=== PATIENT | male | born 1935 | race Caucasian/White ===

== ENCOUNTER 2017-04-08 10:34 | Observation (INO) | payer MEDICARE, OTHER ==
[2017-04-08] VITALS (9 sets, daily range): BP systolic 106–189; BP diastolic 55–90; PULSE 58–77; RESP 16–20; TEMP 97.3–97.4; O2SAT 94–98
[~2017-04-08 10:34] MED LIST: ASPI325T PO; HYDR-3533 PO; LEVO.125 PO; MULT400T OR; ROBA500T PO; TOPR50TA PO; VYTO10TA39 PO
[2017-04-08] MEDS ORDERED: SODIUM CHLOR 0.9% 1000 ML INJ 1,000 ML IV ONE (10:38)
[2017-04-08 10:53] LABS: BASOPHIL # 0.1 TH/MM3 (0-0.2); BASOPHIL % 1.5 % (0.0-2.0); EOSINOPHIL # 0.2 TH/MM3 (0-0.4); EOSINOPHIL % 3.4 % (0.0-4.0); HEMATOCRIT 42.5 % (39.0-51.0); HEMO FLAGS DIFF FINAL; LYMPH % 26.3 % (9.0-44.0); LYMPHOCYTE # 1.8 TH/MM3 (1.0-4.8); MEAN CELL VOLUME 93.7 FL (80.0-100.0); MEAN CORPUSCULAR HEMOGLOBIN 30.8 PG (27.0-34.0); MEAN CORPUSCULAR HGB CONC 32.9 % (32.0-36.0); MONO % 10.5 % (0.0-8.0); NEUT % 58.3 % (16.0-70.0); PLATELET COUNT 156 TH/MM3 (150-450); RED BLOOD COUNT 4.54 MIL/MM3 (4.50-5.90); RED CELL DISTRIBUTION WIDTH 14.4 % (11.6-17.2); WHITE BLOOD COUNT 6.9 TH/MM3 (4.0-11.0)
[2017-04-08 10:54] LABS: I-STAT POTASSIUM 4.7 MMOL/L (3.5-4.9); I-STAT SODIUM 140 MMOL/L (138-146)
--- NOTE | 2017-04-08 10:57 | RADRPT ---
EXAM DATE/TIME: 04/08/2017 10:43 [facility] COMPARISON: No previous studies available for comparison. INDICATIONS : Aphasia, confusion RADIATION DOSE: 56.35 CTDIvol (mGy) This report was called while all scanner. MEDICAL HISTORY : Cardiovascular disease. SURGICAL HISTORY : CABG ENCOUNTER: Initial ACUITY: 1 day PAIN SCALE: 0/10 LOCATION: cranial TECHNIQUE: Multiple contiguous axial images were obtained of the head. Using automated exposure control and adj ustment of the mA and/or kV according to patient size, radiation dose was kept as low as reasonably a chievable to obtain optimal diagnostic quality images. FINDINGS: CEREBRUM: The ventricles are normal for age. No evidence of midline shift, mass lesion, hemorrhage or acute in farction. No extra-axial fluid collections are seen. POSTERIOR FOSSA: The cerebellum and brainstem are intact. The 4th ventricle is midline. The cerebellopontine angle i s unremarkable. EXTRACRANIAL: The visualized portion of the orbits is intact. SKULL: The calvaria is intact. No evidence of skull fracture. CONCLUSION: Negative for acute process. MRI is pending. Domingo Magana MD FACR on April 08, 2017 at 10:53 Board Certified Radiologist. This report was verified electronically.
[2017-04-08 11:05] LABS: APTT (PATIENT) 24.9 SEC (24.3-30.1); INTERNATIONAL NORMALIZED RATIO 0.9 RATIO; PROTHROMBIN TIME - PATIENT 10.4 SEC (9.8-11.6)
[2017-04-08 11:14] LABS: CREATINE KINASE 138 U/L (39-308)
--- NOTE | 2017-04-08 11:38 | RADRPT ---
EXAM DATE/TIME: 04/08/2017 11:04 [facility] COMPARISON: No previous studies available for comparison. INDICATIONS : Stroke. MEDICAL HISTORY : None. SURGICAL HISTORY : CABG Left knee. ENCOUNTER: Initial ACUITY: 1 day PAIN SCORE: 0/10 LOCATION: Head TECHNIQUE: Multiplanar, multisequence MRI of the brain was performed without contrast. FINDINGS: Diffusion images reveal no ischemic changes. There are scattered areas of high signal intensity in t he periventricular white matter is a nonspecific fashion. Lacunar type infarcts are seen in the left cerebellar hemisphere and in the basal ganglia bilaterally. There are no extra-axial fluid collecti ons appreciated. Midline structures are intact. There is no parenchymal hemorrhage. CONCLUSION: 1. Periventricular ischemic changes, negative for acute infarction or parenchymal hemorrhage. 2. Ischemic changes do extend into the posterior fossa. Domingo Magana MD FACR on April 08, 2017 at 11:33 Board Certified Radiologist. This report was verified electronically.
--- NOTE | 2017-04-08 11:44 | RADRPT ---
EXAM DATE/TIME: 04/08/2017 11:04 [facility] COMPARISON: MRI BRAIN W/O CONTRAST, April 08, 2017, 11:04. INDICATIONS : Stroke. MEDICAL HISTORY : None. SURGICAL HISTORY : CABG knee. ENCOUNTER: Initial ACUITY: 1 day PAIN SCORE: 0/10 LOCATION: head Please note a normal MRA of the brain does not entirely exclude the possibility of a small aneurysm, nor the possibility of distal intracranial vessel disease. TECHNIQUE: 3D time of flight MRA was performed. Source images, multiplanar STS MIP, and 3D volume MIP reconstru ctions were reviewed. FINDINGS: There is excellent visualization of the major intracranial arteries out to the second-order branch ve ssels. There is no evidence for aneurysm, vessel truncation or stenosis, and no evidence for vascula r malformation. CONCLUSION: 1. Negative examination. Johnnie Magana MD on April 08, 2017 at 11:40 Board Certified Radiologist. This report was verified electronically.
[2017-04-08] MEDS ORDERED: SODIUM CHLORID 0.9% 500 ML INJ 500 ML IV ONE (11:45)
[2017-04-08] MEDS ORDERED: ASPIRIN 81 MG CHEW TAB CHEW ONE (11:45)
--- NOTE | 2017-04-08 11:47 | RADRPT ---
EXAM DATE/TIME: 04/08/2017 10:53 [facility] COMPARISON: [facility] ([facility]), September 30, 2016, 0:00. INDICATIONS : Stroke alert. MEDICAL HISTORY : Unobtainable. SURGICAL HISTORY : Open heart surgery. ENCOUNTER: Initial ACUITY: 1 day PAIN SCORE: Non-responsive. LOCATION: chest FINDINGS: The patient is post median sternotomy. The heart is normal size. The lungs are clear. The visualized bony structures are grossly intact. CONCLUSION: 1. Post surgical changes. No acute abnormality. Johnnie Magana MD on April 08, 2017 at 11:45 Board Certified Radiologist. This report was verified electronically.
[2017-04-08] MEDS ORDERED: RAPA4CAP PO (11:57)
[2017-04-08] MEDS ORDERED: SIMV40TA PO (11:57)
[2017-04-08] MEDS ORDERED: TOPR50TA PO (11:57)
[2017-04-08] MEDS ORDERED: LEVO125T4 PO (11:57)
--- NOTE | 2017-04-08 12:34 | PD ---
HPI Chief Complaint: Stroke Alert Time Seen by Provider: 10:37 Travel History International Travel<30 days: No Contact w/Intl Traveler<30days: No Traveled to known affect area: No History of Present Illness HPI Patient is a 81-year-old male who presents emergency Department as a stroke alert. The patient was apparently playing golf today when he became confused, he started driving his golf cart in the wrong direction friends caught up with him and called 911. Symptoms onset approximately 30 minutes prior to arrival. Per EMS the patient was having some dysarthria and was having trouble identifying common objects such as sunglasses. On arrival the patient is nearly resolved. He has a history of CABG and left bundle branch block according to EMS. Not on any blood thinners. PFSH Past Medical History Hx Anticoagulant Therapy: Yes (ASA) Heart Rhythm Problems: Yes (V TACH) Cancer: No Cardiovascular Problems: Yes High Cholesterol: Yes Chest Pain: Yes Congestive Heart Failure: No Coronary Artery Disease: Yes Endocrine: No Genitourinary: No Hypertension: Yes Immune Disorder: No Musculoskeletal: No Neurologic: No Psychiatric: No Reproductive: No Respiratory: No Past Surgical History Abdominal Surgery: No Appendectomy: Yes Cardiac Surgery: Yes (2 CABG) Coronary Artery Bypass Graft: Yes (x 2, angio x 3) Ear Surgery: No Endocrine Surgery: No Eye Surgery: No Genitourinary Surgery: No Gynecologic Surgery: No Oral Surgery: No Thoracic Surgery: No Other Surgery: Yes Social History Alcohol Use: Yes (occ) Tobacco Use: No Substance Use: No Allergies-Medications (Allergen,Severity, Reaction): Coded Allergies: No Known Allergies (Verified , 09/29/16) Reported Meds & Prescriptions Reported Meds & Active Scripts Active Robaxin (Methocarbamol) 500 Mg Tab 500 Mg PO QID Lortab (Hydrocodone-Acetaminophen) 5-325 Mg Tab 1 Tab PO Q6H PRN Reported Simvastatin 40 Mg Tab 40 Mg PO HS Toprol XL (Metoprolol Succinate) 50 Mg Tab 50 Mg PO DAILY Rapaflo (Silodosin) 4 Mg Cap 4 Mg PO DAILY Levothyroxine (Levothyroxine Sodium) 125 Mcg Tab 125 Mcg PO DAILY Multaq (Dronedarone) 400 Mg Tab 400 Mg OR BID Vytorin 10/80 (Ezetimibe/Simvastatin) Tab 1 Tab PO DAILY Synthroid (Levothyroxine Sodium) 125 Mcg Tab 125 Mcg PO DAILY Toprol Xl (Metoprolol Succinate) 50 Mg Tabcr 50 Mg PO DAILY Aspirin 325 mg (Aspirin) 325 Mg Tab 325 Mg PO DAILY Review of Systems Except as stated in HPI: all other systems reviewed are Neg Physical Exam Narrative GENERAL: Well-developed well-nourished no apparent distress SKIN: Focused skin assessment warm/dry. HEAD: Atraumatic. Normocephalic. EYES: Pupils equal and round. No scleral icterus. No injection or drainage. ENT: No nasal bleeding or discharge. Mucous membranes pink and moist. NECK: Trachea midline. No JVD. CARDIOVASCULAR: Regular rate and rhythm. No murmur appreciated. RESPIRATORY: No accessory muscle use. Clear to auscultation. Breath sounds equal bilaterally. GASTROINTESTINAL: Abdomen soft, non-tender, nondistended. Hepatic and splenic margins not palpable. MUSCULOSKELETAL: No obvious deformities. No clubbing. No cyanosis. No edema. NEUROLOGICAL: Awake and alert and oriented, total NIH stroke scale of 0-1 (for some mild inattention vs distracted by multiple providers). Cranial nerves II through XII are grossly intact nonfocal, 5 out of 5 strength in all 4 extremities, no pronator drift, no drift lower extremities. Sensation is intact. PSYCHIATRIC: Appropriate mood and affect; insight and judgment normal. Data Data Last Documented VS Vital Signs Date Time Temp Pulse Resp B/P Pulse Ox O2 Delivery O2 Flow Rate FiO2 04/08/17 12:00 58 20 156/81 97 04/08/17 11:10 Room Air 04/08/17 10:37 21 Orders Activity Bed Rest (04/08/17 ) Electrocardiogram (04/08/17 ) I-Stat Creatinine (04/08/17 10:38) I-Stat Profile (04/08/17 10:38) Prothrombin Time / Inr (Pt) (04/08/17 10:38) Act Partial Throm Time (Ptt) (04/08/17 10:38) Complete Blood Count With Diff (04/08/17 10:38) Fibrinogen (04/08/17 10:38) Creatine Kinase (Cpk) (04/08/17 10:38) Troponin I (04/08/17 10:38) Ua Includes Microscopic (04/08/17 10:38) Drug Screen, Random Urine (04/08/17 10:38) Ct Brain W/O Iv Contrast(Rout) (04/08/17 ) Chest, Single Ap (04/08/17 ) Consult Neurology (04/08/17 ) Blood Glucose (04/08/17 10:38) Ecg Monitoring (04/08/17 10:38) Neuro Checks Q2HX12,Q4H (04/08/17 10:38) Nursing Bedside Swallow Assess .ONCE (04/08/17 10:38) Iv Access Insert/Monitor (04/08/17 10:38) NPO (04/08/17 10:38) Oximetry (04/08/17 10:38) Oxygen Administration (04/08/17 10:38) Sodium Chlor 0.9% 1000 Ml Inj (Ns 1000 M (04/08/17 10:38) Resp Oxygen [place]uma C Titrat 1-4 L (04/08/17 10:38) Cath For Specimen (04/08/17 10:38) Mra Brain W/O Contrast (Cow) (04/08/17 ) Mri Brain W/O Contrast (04/08/17 ) (Hub Use Only)Inp Phy Cons/Ref (04/08/17 ) Sodium Chlorid 0.9% 500 Ml Inj (Ns 500 M (04/08/17 11:45) Aspirin Chew (Aspirin Chew) (04/08/17 11:45) Admit Order (Ed Use Only) (04/08/17 ) Labs Laboratory Tests Test 04/08/17 04/08/17 10:35 11:50 White Blood Count 6.9 TH/MM3 Red Blood Count 4.54 MIL/MM3 Hemoglobin 14.0 GM/DL Bedside Hemoglobin 13.9 G/DL Hematocrit 42.5 % Bedside Hematocrit 41.0 % Mean Corpuscular Volume 93.7 FL Mean Corpuscular Hemoglobin 30.8 PG Mean Corpuscular Hemoglobin 32.9 % Concent Red Cell Distribution Width 14.4 % Platelet Count 156 TH/MM3 Mean Platelet Volume 8.1 FL Neutrophils (%) (Auto) 58.3 % Lymphocytes (%) (Auto) 26.3 % Monocytes (%) (Auto) 10.5 % Eosinophils (%) (Auto) 3.4 % Basophils (%) (Auto) 1.5 % Neutrophils # (Auto) 4.0 TH/MM3 Lymphocytes # (Auto) 1.8 TH/MM3 Monocytes # (Auto) 0.7 TH/MM3 Eosinophils # (Auto) 0.2 TH/MM3 Basophils # (Auto) 0.1 TH/MM3 CBC Comment DIFF FINAL Differential Comment Prothrombin Time 10.4 SEC Prothromb Time International 0.9 RATIO Ratio Activated Partial 24.9 SEC Thromboplast Time Fibrinogen 382 mg/dL Bedside Sodium 140 MMOL/L Bedside Potassium 4.7 MMOL/L Bedside Chloride 104 MMOL/L Bedside Blood Urea Nitrogen 19 MG/DL Bedside Creatinine 1.1 MG/DL Bedside Glucose 117 MG/DL Total Creatine Kinase 138 U/L Troponin I LESS THAN 0.02 NG/ML Triglycerides Level 147 MG/DL Cholesterol Level 193 MG/DL LDL Cholesterol 119 MG/DL HDL Cholesterol 44.5 MG/DL Cholesterol/HDL Ratio 4.33 RATIO Urine Color LIGHT-YELLOW Urine Turbidity CLEAR Urine pH 6.5 Urine Specific [place] 1.008 Urine Protein NEG mg/dL Urine Glucose (UA) NEG mg/dL Urine Ketones NEG mg/dL Urine Occult Blood NEG Urine Nitrite NEG Urine Bilirubin NEG Urine Urobilinogen LESS THAN 2.0 MG/DL Urine Leukocyte Esterase NEG Urine RBC LESS THAN 1 /hpf Urine WBC LESS THAN 1 /hpf Urine Opiates Screen NEG Urine Barbiturates Screen NEG Urine Amphetamines Screen NEG Urine Benzodiazepines Screen NEG Urine Cocaine Screen NEG Urine Cannabinoids Screen NEG MDM Medical Screen Exam Complete: Yes Emergency Medical Condition: Yes EKG Prior to Arrival: No Differential Diagnosis TIA, acute stroke, intracranial hemorrhage. Narrative Course Patient was roomed emergency department, stroke alert was activated however the patient will not be a TPA candidate as he is resolved and has a low NIH stroke scale (0-1). Patient was discussed with Dr. Bolton who agrees for MRI workup and need for admission for observation. The patient was discussed with hospitalist on-call who also is agreeable. Critical Care Narrative Aggregate critical care time was 35 minutes. Time to perform other separately billable procedures was not included in the critical care time. My time did not include minutes spent treating any other patients simultaneously or on activities that did not directly contribute to the patient's treatment. The services I provided to this patient were to treat and/or prevent clinically significant deterioration that could result in: , disability, organ failure, brain damage. I provided critical care services requiring my management, as noted below: Chart data review, documentation time, medication orders and management, vital sign assessments/reviewing monitor data, ordering and reviewing lab tests, ordering and interpreting/reviewing x-rays and diagnostic studies, care of the patient and discussion of the patient with the admitting physicians. Stroke Alert NIHSS NIH Stroke Scale Result: 0 NIHSS Time Completed: 10:30 Thrombolytic Contraindications Contraindications Comment: NIH 0, resolved. Procedures Interpretation(s) EKG shows sinus bradycardia left bundle branch block. No Scarbossa's criteria. This is an abnormal EKG. Diagnosis Diagnosis: Primary Impression: TIA (transient ischemic attack) Qualified Code: G45.9 - Transient cerebral ischemia, unspecified type Admitting Physician Requests: Observation Condition: Stable Vikram Petit MD Apr 08, 2017 12:34
[2017-04-08 12:41] LABS: AMPHETAMINE, URINE NEG (NEG); BARBITURATES, URINE NEG (NEG); COCAINE, URINE NEG (NEG)
[2017-04-08 12:42] LABS: BLOOD, URINE NEG (NEG); GLUCOSE,URINE NEG (NEG); KETONE, URINE NEG (NEG); NITRITE,URINE NEG (NEG); PH, URINE 6.5 (5.0-8.5); URINE COLOR LIGHT-YELLOW (YELLW/STRAW)
[2017-04-08] MEDS ORDERED: ACETAMINOPHEN/HYDROcodone 325 MG/5 MG TAB PO PRN (15:00)
[2017-04-08 17:09] LABS: HDL CHOLESTEROL 44.5 MG/DL (40.0-60.0)
--- NOTE | 2017-04-08 17:32 | HHI.HP ---
HPI Service [facility] Primary Care Physician Florencio Pagan M.D. Admission Diagnosis TIA Diagnoses: Chief Complaint: Stroke symptoms Travel History International Travel<30 Days: No Contact w/Intl Traveler <30 Da: No Traveled to Known Affected Are: No History of Present Illness This is a 81-year-old white male with significant past history hypertension, hyperlipidemia, borderline diabetes, coronary artery disease and previous CABG, V. tach . Patient presented to the emergency room as a stroke alert. According to the patient, this morning he was playing golf when he suddenly fell "strange", indicates that he could not use his hands, they were "useless". [place] confused, he couldn't recognize the name of his street and could not answer questions appropriately. Denies any paresthesias, no changes in sensation, no headache. No difficulty with mobility. Indicates that his friends took him home and they called EMS and he was brought here for further evaluation. He denies any prior history of stroke. He has prior history of coronary artery disease and V. tach. His national dedicated truck driver is Dr. Hernandez. He does take a baby aspirin. In the emergency room, patient was evaluated. CT of the head was negative. He was given aspirin. Patient was initially elevated 180s over 90s. Laboratory workup was essentially unremarkable. At this time, his symptoms have been resolved. He denies any chest pain, no shortness of breath, no palpitations. No recent fever, no chills. Indicates that prior to this hospitalization he had been doing well at home and had been in good health. Patient is admitted for further evaluation and treatment. Review of Systems Psychiatric: COMPLAINS OF: Confusion Past Family Social History Past Medical History Include hypothyroidism, coronary artery disease, hypertension, hyperlipidemia, V. tach Borderline diabetes, currently diet controlled Past Surgical History Significant for coronary artery bypass surgery times two, one at age 42 and another at age 62. Appendectomy, multiple cardiac catheterizations. Reported Medications Reported Meds & Active Scripts Active Robaxin (Methocarbamol) 500 Mg Tab 500 Mg PO QID Lortab (Hydrocodone-Acetaminophen) 5-325 Mg Tab 1 Tab PO Q6H PRN Reported Simvastatin 40 Mg Tab 40 Mg PO HS Toprol XL (Metoprolol Succinate) 50 Mg Tab 50 Mg PO DAILY Rapaflo (Silodosin) 4 Mg Cap 4 Mg PO DAILY Levothyroxine (Levothyroxine Sodium) 125 Mcg Tab 125 Mcg PO DAILY Multaq (Dronedarone) 400 Mg Tab 400 Mg OR BID Vytorin 10/80 (Ezetimibe/Simvastatin) Tab 1 Tab PO DAILY Synthroid (Levothyroxine Sodium) 125 Mcg Tab 125 Mcg PO DAILY Toprol Xl (Metoprolol Succinate) 50 Mg Tabcr 50 Mg PO DAILY Aspirin 325 mg (Aspirin) 325 Mg Tab 325 Mg PO DAILY Allergies: Coded Allergies: No Known Allergies (Verified , 09/29/16) Active Ordered Medications Inpatient Medications Acetaminophen/ Hydrocodone Bitart ([place] 5-325 Mg) 1 tab Q6H PRN PO PAIN 1-10 ; Start 04/08/17 at 15:00 Aspirin (Aspirin Chew) 324 mg ONCE ONCE CHEW Last administered on 04/08/17 11 :45; Start 04/08/17 at 11:45; Stop 04/08/17 at 11:50; Status DC Aspirin (Aspirin) 325 mg DAILY PO ; Start 04/09/17 at 09:00 Dronedarone (Multaq) 400 mg BID PO ; Start 04/08/17 at 21:00 Levothyroxine Sodium (Synthroid) 125 mcg DAILY@06 PO ; Start 04/09/17 at 06:00 Metoprolol Succinate (Toprol Xl) 50 mg DAILY PO ; Start 04/09/17 at 09:00 Pravastatin Sodium (Pravachol) 80 mg HS PO CM; Start 04/08/17 at 21:00 Sodium Chloride (NS 500 ml Inj) 500 ml @ 500 mls/hr BOLUS ONCE IV Last administered on 04/08/17 11:45; Start 04/08/17 at 11:45; Stop 04/08/17 at 12:44 ; Status DC Family History Significant for heart disease. Social History The patient states that he quit smoking approximately 40 years ago. He does drink alcohol approximately two glasses of wine daily. He denies any illicit drugs. Very active, plays golf 4x a week. Physical Exam Vital Signs Vital Signs Date Time Temp Pulse Resp B/P Pulse Ox O2 Delivery O2 Flow Rate FiO2 04/08/17 16:22 97.3 60 16 134/62 95 04/08/17 15:24 59 16 141/60 98 04/08/17 12:00 58 20 156/81 97 04/08/17 11:10 16 94 Room Air 04/08/17 10:37 96 21 04/08/17 10:37 96 21 04/08/17 10:36 77 18 189/90 94 Physical Exam GENERAL: This is a well-nourished, well-developed patient, in no apparent distress. SKIN: No rashes, ecchymoses or lesions. Cool and dry. HEAD: Atraumatic. Normocephalic. No temporal or scalp tenderness. EYES: Pupils equal round and reactive. Extraocular motions intact. No scleral icterus. No injection or drainage. ENT: Nose without bleeding, purulent drainage or septal hematoma. Throat without erythema, tonsillar hypertrophy or exudate. Uvula midline. Airway patent. NECK: Trachea midline. No JVD or lymphadenopathy. Supple, nontender, no meningeal signs. CARDIOVASCULAR: Regular rate and rhythm without murmurs, gallops, or rubs. RESPIRATORY: Clear to auscultation. Breath sounds equal bilaterally. No wheezes , rales, or rhonchi. GASTROINTESTINAL: Abdomen soft, non-tender, nondistended. No hepato-splenomegaly , or palpable masses. No guarding. MUSCULOSKELETAL: Extremities without clubbing, cyanosis, or edema. No joint tenderness, effusion, or edema noted. No calf tenderness. Negative Homans sign bilaterally. NEUROLOGICAL: Awake and alert. Cranial nerves II through XII intact. Motor and sensory grossly within normal limits. Five out of 5 muscle strength in all muscle groups. Normal speech. Laboratory Laboratory Tests Test 04/08/17 04/08/17 10:35 11:50 White Blood Count 6.9 Red Blood Count 4.54 Hemoglobin 14.0 Bedside Hemoglobin 13.9 Hematocrit 42.5 Bedside Hematocrit 41.0 Mean Corpuscular Volume 93.7 Mean Corpuscular Hemoglobin 30.8 Mean Corpuscular Hemoglobin 32.9 Concent Red Cell Distribution Width 14.4 Platelet Count 156 Mean Platelet Volume 8.1 Neutrophils (%) (Auto) 58.3 Lymphocytes (%) (Auto) 26.3 Monocytes (%) (Auto) 10.5 Eosinophils (%) (Auto) 3.4 Basophils (%) (Auto) 1.5 Neutrophils # (Auto) 4.0 Lymphocytes # (Auto) 1.8 Monocytes # (Auto) 0.7 Eosinophils # (Auto) 0.2 Basophils # (Auto) 0.1 CBC Comment DIFF FINAL Differential Comment Prothrombin Time 10.4 Prothromb Time International 0.9 Ratio Activated Partial 24.9 Thromboplast Time Fibrinogen 382 Bedside Sodium 140 Bedside Potassium 4.7 Bedside Chloride 104 Bedside Blood Urea Nitrogen 19 Bedside Creatinine 1.1 Bedside Glucose 117 Total Creatine Kinase 138 Troponin I LESS THAN 0.02 Triglycerides Level 147 Cholesterol Level 193 LDL Cholesterol 119 HDL Cholesterol 44.5 Cholesterol/HDL Ratio 4.33 Urine Color LIGHT-YELLOW Urine Turbidity CLEAR Urine pH 6.5 Urine Specific [place] 1.008 Urine Protein NEG Urine Glucose (UA) NEG Urine Ketones NEG Urine Occult Blood NEG Urine Nitrite NEG Urine Bilirubin NEG Urine Urobilinogen LESS THAN 2.0 Urine Leukocyte Esterase NEG Urine RBC LESS THAN 1 Urine WBC LESS THAN 1 Urine Opiates Screen NEG Urine Barbiturates Screen NEG Urine Amphetamines Screen NEG Urine Benzodiazepines Screen NEG Urine Cocaine Screen NEG Urine Cannabinoids Screen NEG Result Diagram: 04/08/17 1035 Imaging Last Impressions Head Magnetic Resonance Angiography 04/08/17 0000 Signed Impressions: Service Date/Time: Saturday, April 08, 2017 11:04 - CONCLUSION: 1. Negative examination. Johnnie Magana MD Head CT 04/08/17 0000 Signed Impressions: Service Date/Time: Saturday, April 08, 2017 10:43 - CONCLUSION: Negative for acute process. MRI is pending. Domingo Magana MD FACR Chest X-Ray 04/08/17 0000 Signed Impressions: Service Date/Time: Saturday, April 08, 2017 10:53 - CONCLUSION: 1. Post surgical changes. No acute abnormality. Johnnie Magana MD Brain MRI 04/08/17 0000 Signed Impressions: Service Date/Time: Saturday, April 08, 2017 11:04 - CONCLUSION: 1. Periventricular ischemic changes, negative for acute infarction or parenchymal hemorrhage. 2. Ischemic changes do extend into the posterior fossa. Domingo Magana MD FACR Assessment and Plan Problem List: (1) TIA (transient ischemic attack) (2) CAD (coronary artery disease) (3) Hyperlipidemia (4) HTN (hypertension) (5) Alcohol abuse, daily use (6) Hx of ventricular tachycardia Assessment and Plan Admit to Dr. Sher 81-year-old male assented to the emergency room with difficulty using hands while playing golf, could not speak felt confused. TIA, symptoms now resolved. Continue with neuro checks Normal saline at 75 an hour Neurology has been consulted for evaluation 2-D echo, carotid ultrasound have been ordered Continuous cardiac telemetry Continue with aspirin for now Lipid profile and hemoglobin A1c have been ordered -PT evaluation Coronary artery disease, history of CABG 2 first time at age 42 and then a redo and his 60s History of V. tach on Multaq -Continue amiodarone and metoprolol Continuous cardiac telemetry Cardiology has been consulted Hypertension, initially elevated now stable Continue with home medications Hyperlipidemia Lipid profile pending Continue with statins Daily alcohol use Patient has been counseled about decreasing alcohol intake Medications reviewed, initiated as indicated SCDs for DVT prophylaxis Plan of care has been discussed with the patient, attending and registered nurse. Further management of the patient will be dependent on the hospital course This patient was seen by myself and Dr. Sher, this H&P is written on his behalf Problem Qualifiers (1) TIA (transient ischemic attack): Qualified Code: G45.9 - Transient cerebral ischemia, unspecified type (2) CAD (coronary artery disease): Qualified Code: I25.10 - Coronary artery disease involving [place] coronary artery of [place] heart without angina pectoris (3) Hyperlipidemia: Qualified Code: E78.5 - Hyperlipidemia, unspecified hyperlipidemia type (4) HTN (hypertension): Qualified Code: I10 - Essential hypertension Charu Valdez Apr 08, 2017 17:32
--- NOTE | 2017-04-08 17:45 | HHI.PR ---
Objective Objective Results - Vital Signs Date Time Temp Pulse Resp B/P Pulse Ox O2 Delivery O2 Flow Rate FiO2 04/08/17 16:22 97.3 60 16 134/62 95 04/08/17 15:24 59 16 141/60 98 04/08/17 12:00 58 20 156/81 97 04/08/17 11:10 16 94 Room Air 04/08/17 10:37 96 21 04/08/17 10:37 96 21 04/08/17 10:36 77 18 189/90 94 Result Diagram: 04/08/17 1035 Imaging Last Impressions Head Magnetic Resonance Angiography 04/08/17 0000 Signed Impressions: Service Date/Time: Saturday, April 08, 2017 11:04 - CONCLUSION: 1. Negative examination. Johnnie Magana MD Head CT 04/08/17 0000 Signed Impressions: Service Date/Time: Saturday, April 08, 2017 10:43 - CONCLUSION: Negative for acute process. MRI is pending. Domingo Magana MD FACR Chest X-Ray 04/08/17 0000 Signed Impressions: Service Date/Time: Saturday, April 08, 2017 10:53 - CONCLUSION: 1. Post surgical changes. No acute abnormality. Johnnie Magana MD Brain MRI 04/08/17 0000 Signed Impressions: Service Date/Time: Saturday, April 08, 2017 11:04 - CONCLUSION: 1. Periventricular ischemic changes, negative for acute infarction or parenchymal hemorrhage. 2. Ischemic changes do extend into the posterior fossa. Domingo Magana MD FACR Other Results Laboratory Tests Test 04/08/17 04/08/17 10:35 11:50 White Blood Count 6.9 Red Blood Count 4.54 Hemoglobin 14.0 Bedside Hemoglobin 13.9 Hematocrit 42.5 Bedside Hematocrit 41.0 Mean Corpuscular Volume 93.7 Mean Corpuscular Hemoglobin 30.8 Mean Corpuscular Hemoglobin 32.9 Concent Red Cell Distribution Width 14.4 Platelet Count 156 Mean Platelet Volume 8.1 Neutrophils (%) (Auto) 58.3 Lymphocytes (%) (Auto) 26.3 Monocytes (%) (Auto) 10.5 Eosinophils (%) (Auto) 3.4 Basophils (%) (Auto) 1.5 Neutrophils # (Auto) 4.0 Lymphocytes # (Auto) 1.8 Monocytes # (Auto) 0.7 Eosinophils # (Auto) 0.2 Basophils # (Auto) 0.1 CBC Comment DIFF FINAL Differential Comment Prothrombin Time 10.4 Prothromb Time International 0.9 Ratio Activated Partial 24.9 Thromboplast Time Fibrinogen 382 Bedside Sodium 140 Bedside Potassium 4.7 Bedside Chloride 104 Bedside Blood Urea Nitrogen 19 Bedside Creatinine 1.1 Bedside Glucose 117 Total Creatine Kinase 138 Troponin I LESS THAN 0.02 Triglycerides Level 147 Cholesterol Level 193 LDL Cholesterol 119 HDL Cholesterol 44.5 Cholesterol/HDL Ratio 4.33 Urine Color LIGHT-YELLOW Urine Turbidity CLEAR Urine pH 6.5 Urine Specific [place] 1.008 Urine Protein NEG Urine Glucose (UA) NEG Urine Ketones NEG Urine Occult Blood NEG Urine Nitrite NEG Urine Bilirubin NEG Urine Urobilinogen LESS THAN 2.0 Urine Leukocyte Esterase NEG Urine RBC LESS THAN 1 Urine WBC LESS THAN 1 Urine Opiates Screen NEG Urine Barbiturates Screen NEG Urine Amphetamines Screen NEG Urine Benzodiazepines Screen NEG Urine Cocaine Screen NEG Urine Cannabinoids Screen NEG Physical Exam Physical Exam pt is seen & examined dw PT d/w Charu see H&P see Orders Neuro w/u Neuro consult will f/i Mani Sher MD Apr 08, 2017 17:45
--- NOTE | 2017-04-08 18:46 | PD.CONS ---
History of Present Illness Service Neurology Consult Requested By er Reason for Consult stroke alert Primary Care Physician Florencio Pagan M.D. History of Present Illness 81 y/o m admitted for possible tia/stroke. was out playing golf when his got called about the pt. they took him home, evac called. he was noted to be confused and not making sense. was able to speak. he remembers feeling a numbness in his hands prior to episode. ct brain nml. mri brain no acute stroke. glucose 117. bp 189/90 in er. symptoms resolved in er. not tpa candidate. hx of vtach on multaq. takes aspirin at home. denies any hx of tia/stroke/sz/concussion. no headache or neck pain at present. Review of Systems 12 point negative, rest as above Past Family Social History Past Medical History Include hypothyroidism, coronary artery disease, hypertension, hyperlipidemia, V. tach Borderline diabetes Past Surgical History Significant for coronary artery bypass surgery times two, one at age 42 and another at age 62. Appendectomy, multiple cardiac catheterizations. Allergies: Coded Allergies: No Known Allergies (Verified , 09/29/16) Family History Significant for heart disease. Social History The patient states that he quit smoking approximately 40 years ago He denies any illicit drugs Review of Systems All other ROS: ROS reviewed as documented in chart Past Family Social History Allergies: Coded Allergies: No Known Allergies (Verified , 09/29/16) Active Ordered Medications Current Medications Medications (Trade) Dose Ordered Sig/Rakesh Route Start Time Stop Time Status Last Admin (NS 1000 ml Inj) 1,000 ml @ 70 mls/hr [id number] ONCE IV 04/08/17 10:38 04/09/17 00:55 04/08/17 10:38 (Aspirin) 325 mg DAILY PO 04/09/17 09:00 (Multaq) 400 mg BID PO 04/08/17 21:00 ([place] 5-325 Mg) 1 tab Q6H PRN PO 04/08/17 15:00 (Synthroid) 125 mcg DAILY@06 PO 04/09/17 06:00 (Toprol Xl) 50 mg DAILY PO 04/09/17 09:00 (Pravachol) 80 mg HS PO 04/08/17 21:00 Exam I&O / VS Vital Signs Date Time Temp Pulse Resp B/P Pulse Ox O2 Delivery O2 Flow Rate FiO2 04/08/17 16:22 97.3 60 16 134/62 95 04/08/17 15:24 59 16 141/60 98 04/08/17 12:00 58 20 156/81 97 04/08/17 11:10 16 94 Room Air 04/08/17 10:37 96 21 04/08/17 10:37 96 21 04/08/17 10:36 77 18 189/90 94 General: Alert and Oriented, No acute distress Eye: EOMI Respiratory: Non-labored respirations Neurologic: Alert, Oriented, Normal sensory, Normal motor, No focal defects, CN II-XII intact, Gag reflex normal, Normal DTR's Psychiatric: Cooperative, Appropriate mood & affect, Normal judgement, Non- suicidal Review/Management Diagnosis/Plan: (1) TIA (transient ischemic attack) Plan: possible tia vs HTN encephalopathy mri/mra negative for acute stroke/vascular stenosis/occlusion recs cardio eval for afib r/o-may need linq monitor change to plavix bp control f/u echo/carotids p.t. eeg statin follow exam (2) HTN (hypertension) (3) Hyperlipidemia (4) Hx of ventricular tachycardia Problem Qualifiers (1) TIA (transient ischemic attack): Qualified Code: G45.9 - Transient cerebral ischemia, unspecified type (2) HTN (hypertension): Qualified Code: I10 - Essential hypertension (3) Hyperlipidemia: Qualified Code: E78.5 - Hyperlipidemia, unspecified hyperlipidemia type Jonathan Bolton MD Apr 08, 2017 18:46
--- NOTE | 2017-04-08 19:04 | RADRPT ---
EXAM DATE/TIME: 04/08/2017 17:40 [facility] COMPARISON: No previous studies available for comparison. INDICATIONS : Transient ischemic attack. MEDICAL HISTORY : Hypercholesterolemia. Hypertension. Coronary artery disease. Anticoagulant therapy, Aspirin. Irregu lar heartbeat. Measles. SURGICAL HISTORY : CABG. Appendectomy. ENCOUNTER: Initial ACUITY: 1 day PAIN SCORE: 0/10 LOCATION: Bilateral neck PEAK SYSTOLIC VELOCITIES (cm/sec): ICA/CCA RATIO: Right: 0.9 Left: 1.0 ICA: Right: 82 Left: 86 CCA: Right: 96 Left: 83 ECA: Right: 126 Left: 131 VERTEBRAL: Right: 42 antegrade Left: 38 antegrade Elevated flow velocities and ICA/CCA ratios have been found to correlate with increased degrees of vessel stenosis, calculated as percentage of diameter relative to a normal segment of distal ICA/CCA FINDINGS: RIGHT CAROTID: There is trace plaque of the bulb and proximal internal carotid artery. LEFT CAROTID: There is mild plaque in the bulb and proximal internal carotid artery. VERTEBRAL ARTERIES: Antegrade flow is seen in both vertebral arteries. MISCELLANEOUS: None. CONCLUSION: Bilateral carotid bifurcation atherosclerotic plaque, trace on the right and mild on the left. No naresh rowing on either side. Tony Butterfield MD on April 08, 2017 at 19:01 Board Certified Radiologist. This report was verified electronically.
[2017-04-08] MEDS: HEPARIN SODIUM - SQ 10,000 UNITS/ML VIAL SQ SCH (20:52)
[2017-04-08] MEDS: DRONEDARONE 400 MG TAB PO SCH (20:53)
[2017-04-08] MEDS: CLOPIDOGREL 75 MG TAB PO SCH (20:53)
[2017-04-08] MEDS ORDERED: PRAVASTATIN SOD 80 MG TAB PO SCH (21:00)
[2017-04-09] VITALS: BP 106/58; PULSE 74; RESP 18; TEMP 98.4; O2SAT 97
[2017-04-09] MEDS ORDERED: LEVOTHYROXINE SODIUM 125 MCG TAB PO SCH (06:00)
[2017-04-09 07:04] VITALS: BP 124/65; PULSE 64; RESP 18; TEMP 98; O2SAT 96
[2017-04-09 07:55] VITALS: PULSE 55
[2017-04-09 08:12] VITALS: BP 134/74; PULSE 62; RESP 16; TEMP 97.8; O2SAT 95
--- NOTE | 2017-04-09 08:21 | HHI.PR ---
Subjective Remarks no neuro changes overnight no speech difficulties no cp no sob tele reviewed, HR 50s, ? irregular, junctional Objective Objective Results - Vital Signs Date Time Temp Pulse Resp B/P Pulse Ox O2 Delivery O2 Flow Rate FiO2 04/09/17 07:04 98.0 64 18 124/65 96 04/09/17 00:00 98.4 74 18 106/58 97 04/08/17 23:00 59 04/08/17 20:00 59 04/08/17 19:46 97.4 60 16 106/55 96 04/08/17 16:22 97.3 60 16 134/62 95 04/08/17 15:24 59 16 141/60 98 04/08/17 12:00 58 20 156/81 97 04/08/17 11:10 16 94 Room Air 04/08/17 10:37 96 21 04/08/17 10:37 96 21 04/08/17 10:36 77 18 189/90 94 I/O 04/08/17 04/08/17 04/08/17 04/09/17 04/09/17 04/09/17 07:00 15:00 23:00 07:00 15:00 23:00 Intake Total 480 ml 0 ml Output Total 1 ml Balance 479 ml 0 ml Intake Oral 480 ml 0 ml Output Urine Total 1 ml # Voids 3 # Bowel Movements 1 Result Diagram: 04/08/17 1035 Imaging Last Impressions Head Magnetic Resonance Angiography 04/08/17 0000 Signed Impressions: Service Date/Time: Saturday, April 08, 2017 11:04 - CONCLUSION: 1. Negative examination. Johnnie Magana MD Head CT 04/08/17 0000 Signed Impressions: Service Date/Time: Saturday, April 08, 2017 10:43 - CONCLUSION: Negative for acute process. MRI is pending. Domingo Magana MD FACR Chest X-Ray 04/08/17 0000 Signed Impressions: Service Date/Time: Saturday, April 08, 2017 10:53 - CONCLUSION: 1. Post surgical changes. No acute abnormality. Johnnie Magana MD Brain MRI 04/08/17 0000 Signed Impressions: Service Date/Time: Saturday, April 08, 2017 11:04 - CONCLUSION: 1. Periventricular ischemic changes, negative for acute infarction or parenchymal hemorrhage. 2. Ischemic changes do extend into the posterior fossa. Domingo Magana MD FACR Other Results Laboratory Tests Test 04/08/17 04/08/17 10:35 11:50 White Blood Count 6.9 Red Blood Count 4.54 Hemoglobin 14.0 Bedside Hemoglobin 13.9 Hematocrit 42.5 Bedside Hematocrit 41.0 Mean Corpuscular Volume 93.7 Mean Corpuscular Hemoglobin 30.8 Mean Corpuscular Hemoglobin 32.9 Concent Red Cell Distribution Width 14.4 Platelet Count 156 Mean Platelet Volume 8.1 Neutrophils (%) (Auto) 58.3 Lymphocytes (%) (Auto) 26.3 Monocytes (%) (Auto) 10.5 Eosinophils (%) (Auto) 3.4 Basophils (%) (Auto) 1.5 Neutrophils # (Auto) 4.0 Lymphocytes # (Auto) 1.8 Monocytes # (Auto) 0.7 Eosinophils # (Auto) 0.2 Basophils # (Auto) 0.1 CBC Comment DIFF FINAL Differential Comment Prothrombin Time 10.4 Prothromb Time International 0.9 Ratio Activated Partial 24.9 Thromboplast Time Fibrinogen 382 Bedside Sodium 140 Bedside Potassium 4.7 Bedside Chloride 104 Bedside Blood Urea Nitrogen 19 Bedside Creatinine 1.1 Bedside Glucose 117 Total Creatine Kinase 138 Troponin I LESS THAN 0.02 Triglycerides Level 147 Cholesterol Level 193 LDL Cholesterol 119 HDL Cholesterol 44.5 Cholesterol/HDL Ratio 4.33 Urine Color LIGHT-YELLOW Urine Turbidity CLEAR Urine pH 6.5 Urine Specific [place] 1.008 Urine Protein NEG Urine Glucose (UA) NEG Urine Ketones NEG Urine Occult Blood NEG Urine Nitrite NEG Urine Bilirubin NEG Urine Urobilinogen LESS THAN 2.0 Urine Leukocyte Esterase NEG Urine RBC LESS THAN 1 Urine WBC LESS THAN 1 Urine Opiates Screen NEG Urine Barbiturates Screen NEG Urine Amphetamines Screen NEG Urine Benzodiazepines Screen NEG Urine Cocaine Screen NEG Urine Cannabinoids Screen NEG ROS General: No: Fatigue, Weakness HEENT: No: Sore Throat, Dysphagia Cardiac: No: Chest Pain, Edema, Palpitations Pulmonary: No: Cough, SOB, Wheezing GI: No: Abdominal Pain, BM, Diarrhea, N/V /NEON GLASS BLOWER: No: Dysuria, Urgency Neuro/MS: No: Lightheaded, Confusion Psych: No: Anxiety, Depression Skin: No: Itching, Rash Physical Exam Physical Exam PHYSICAL EXAMINATION GENERAL: This is a well-developed, well-nourished male who appears to be in no acute distress. He is alert and awake, []. HEAD: Normocephalic without any lesion or mass noted. Facial features appear symmetric. EYES: Perrla, Normal eye movement, [] Icterus. [] Conj congestion. OROPHARYNGEAL: Oropharynx without erythema or edema. MOUTH/THROAT: Tongue midline []. Buccal mucosa is moist []. NECK: Supple. No nuchal rigidity or lymphadenopathy. Trachea midline without deviation. Thyroid not palpable, no bruits appreciated. CARDIAC: Regular rhythm, regular rate, S1 and S2 are heard. Murmur []; no gallops or rubs. LUNGS: Clear to auscultation bilaterally. [] wheeze, [] rhonchi or [] rale. No use of accessory muscles on inspiration or expiration. ABDOMEN: Soft, nontender, no organomegaly or masses. Bowel sounds are heard in all four quadrants. No rebound. No guarding. EXTREMITIES: [] edema. Pulses equal bilateral. [] cyanosis. NEUROLOGICAL: Patient mood and affect appropriate. Cranial nerves II through XII grossly intact. Muscle strength 5/5 in the upper and lower extremities bilaterally. Deep tendon reflexes are 2+ in the upper and lower extremities bilaterally. SKIN:Warm and moist PSYCH: Mood and affect appropriate Urinary Catheter: No Vascular Central Line Catheter: No A/P Diagnosis: (1) TIA (transient ischemic attack) (2) CAD (coronary artery disease) (3) Hyperlipidemia (4) HTN (hypertension) (5) Alcohol abuse, daily use (6) Hx of ventricular tachycardia Assessment and Plan 81-year-old male assented to the emergency room with difficulty using hands while playing golf, could not speak felt confused. TIA, symptoms now resolved. Continue with neuro checks DC IVF Neurology has been consulted for evaluation. Input appreciated, recommends card input r/o afib, ? linq 2-D echo pending, CUS, plaque bilat no stenosis. Continuous cardiac telemetry upgraded to Plavix per neuro Lipid profile results noted, hemoglobin A1c (p) -PT evaluation -no neuro deficits, waiting for card input and work up. Tele reviewed, ? junctional, pao, slow afib Coronary artery disease, history of CABG 2 first time at age 42 and then a redo and his 60s History of V. tach on Multaq -Continue amiodarone and metoprolol Continuous cardiac telemetry Cardiology has been consulted Hypertension, initially elevated now stable Continue with home medications Hyperlipidemia Lipid profile done Continue with statins Daily alcohol use Patient has been counseled about decreasing alcohol intake Heparin/SCDs for DVT prophylaxis continue with work up, poss dc today or tomorrow depending on card/neuro input D/W RN D/W Dr. Sher D/W pt. This patient was seen by myself and Dr. Sher, this note is written on his behalf Problem Qualifiers (1) TIA (transient ischemic attack): Qualified Code: G45.9 - Transient cerebral ischemia, unspecified type (2) CAD (coronary artery disease): Qualified Code: I25.10 - Coronary artery disease involving [place] coronary artery of [place] heart without angina pectoris (3) Hyperlipidemia: Qualified Code: E78.5 - Hyperlipidemia, unspecified hyperlipidemia type (4) HTN (hypertension): Qualified Code: I10 - Essential hypertension Charu Valdez Apr 09, 2017 08:21
[2017-04-09] MEDS ORDERED: PLAV75TA29 PO (08:34)
--- NOTE | 2017-04-09 08:34 | HHI.DCPOC ---
Discharge Care Plan Diagnosis: (1) TIA (transient ischemic attack) (2) CAD (coronary artery disease) (3) Hyperlipidemia (4) HTN (hypertension) (5) Alcohol abuse, daily use (6) Hx of ventricular tachycardia Your Health Problems Are: Difficulty with ADL Goals to Promote Your Health * To prevent worsening of your condition and complications * To maintain your health at the optimal level Directions to Meet Your Goals Take your medications as prescribed Follow your dietary instruction Follow activity as directed Keep your appointments as scheduled Take your immunizations and boosters as scheduled If your symptoms worsen call your PCP, if no PCP go to Urgent Care Center or Emergency Room Smoking is Dangerous to Your Health. Avoid second hand smoke Call the 24-hour hour crisis hotline for domestic abuse at Charu Valdez Apr 09, 2017 08:34
--- NOTE | 2017-04-09 08:51 | HHI.PR ---
Review/Management Diagnosis/Plan: (1) TIA (transient ischemic attack) Plan: possible tia vs HTN encephalopathy mri/mra negative for acute stroke/vascular stenosis/occlusion recs neuro stable cardio eval for afib r/o-may need linq monitor- getting placed this afternoon; appreciate cards bp control f/u echo/carotids- minimal plaque p.t. eeg-pending statin no driving until seen outpatient d/c planning from neuro after procedure and outpatient f/u (2) HTN (hypertension) (3) Hyperlipidemia (4) Hx of ventricular tachycardia Subjective Subjective Comments No acute events reported No headache No chest pain No dyspnea Active Medications Current Medications Medications (Trade) Dose Ordered Sig/Rakesh Route Start Time Stop Time Status Last Admin (Aspirin) 325 mg DAILY PO 04/09/17 09:00 (Multaq) 400 mg BID PO 04/08/17 21:00 04/08/17 20:53 ([place] 5-325 Mg) 1 tab Q6H PRN PO 04/08/17 15:00 (Synthroid) 125 mcg DAILY@06 PO 04/09/17 06:00 04/09/17 05:39 (Toprol Xl) 50 mg DAILY PO 04/09/17 09:00 (Pravachol) 80 mg HS PO 04/08/17 21:00 04/08/17 20:53 (Plavix) 75 mg DAILY PO 04/08/17 18:45 04/08/17 20:53 (Heparin Inj) 5,000 units BID SQ 04/08/17 21:00 04/08/17 20:52 Allergies Allergies Coded Allergies No Known Allergies ([id number]) Review of Systems All other ROS: ROS reviewed as documented in chart Exam I&O / VS 04/08/17 04/08/17 04/09/17 15:00 23:00 07:00 Intake Total 480 ml 0 ml Output Total 1 ml Balance 479 ml 0 ml Intake Oral 480 ml 0 ml Output Urine Total 1 ml # Voids 3 # Bowel Movements 1 Vital Signs Date Time Temp Pulse Resp B/P Pulse Ox O2 Delivery O2 Flow Rate FiO2 04/09/17 08:12 97.8 62 16 134/74 95 04/09/17 07:04 98.0 64 18 124/65 96 04/09/17 00:00 98.4 74 18 106/58 97 04/08/17 23:00 59 04/08/17 20:00 59 04/08/17 19:46 97.4 60 16 106/55 96 04/08/17 16:22 97.3 60 16 134/62 95 04/08/17 15:24 59 16 141/60 98 04/08/17 12:00 58 20 156/81 97 04/08/17 11:10 16 94 Room Air 04/08/17 10:37 96 21 04/08/17 10:37 96 21 04/08/17 10:36 77 18 189/90 94 General: Alert and Oriented, No acute distress Eye: EOMI Respiratory: Non-labored respirations Neurologic: Alert, Oriented, Normal sensory, Normal motor, No focal defects, CN II-XII intact, Gag reflex normal, Normal DTR's Psychiatric: Cooperative, Appropriate mood & affect, Normal judgement, Non- suicidal Objective Micro and Labs Laboratory Tests Test 04/08/17 04/08/17 10:35 11:50 White Blood Count 6.9 Red Blood Count 4.54 Hemoglobin 14.0 Bedside Hemoglobin 13.9 Hematocrit 42.5 Bedside Hematocrit 41.0 Mean Corpuscular Volume 93.7 Mean Corpuscular Hemoglobin 30.8 Mean Corpuscular Hemoglobin 32.9 Concent Red Cell Distribution Width 14.4 Platelet Count 156 Mean Platelet Volume 8.1 Neutrophils (%) (Auto) 58.3 Lymphocytes (%) (Auto) 26.3 Monocytes (%) (Auto) 10.5 Eosinophils (%) (Auto) 3.4 Basophils (%) (Auto) 1.5 Neutrophils # (Auto) 4.0 Lymphocytes # (Auto) 1.8 Monocytes # (Auto) 0.7 Eosinophils # (Auto) 0.2 Basophils # (Auto) 0.1 CBC Comment DIFF FINAL Differential Comment Prothrombin Time 10.4 Prothromb Time International 0.9 Ratio Activated Partial 24.9 Thromboplast Time Fibrinogen 382 Bedside Sodium 140 Bedside Potassium 4.7 Bedside Chloride 104 Bedside Blood Urea Nitrogen 19 Bedside Creatinine 1.1 Bedside Glucose 117 Total Creatine Kinase 138 Troponin I LESS THAN 0.02 Triglycerides Level 147 Cholesterol Level 193 LDL Cholesterol 119 HDL Cholesterol 44.5 Cholesterol/HDL Ratio 4.33 Urine Color LIGHT-YELLOW Urine Turbidity CLEAR Urine pH 6.5 Urine Specific [place] 1.008 Urine Protein NEG Urine Glucose (UA) NEG Urine Ketones NEG Urine Occult Blood NEG Urine Nitrite NEG Urine Bilirubin NEG Urine Urobilinogen LESS THAN 2.0 Urine Leukocyte Esterase NEG Urine RBC LESS THAN 1 Urine WBC LESS THAN 1 Urine Opiates Screen NEG Urine Barbiturates Screen NEG Urine Amphetamines Screen NEG Urine Benzodiazepines Screen NEG Urine Cocaine Screen NEG Urine Cannabinoids Screen NEG Problem Qualifiers (1) TIA (transient ischemic attack): Qualified Code: G45.9 - Transient cerebral ischemia, unspecified type (2) HTN (hypertension): Qualified Code: I10 - Essential hypertension (3) Hyperlipidemia: Qualified Code: E78.5 - Hyperlipidemia, unspecified hyperlipidemia type Jonathan Bolton MD Apr 09, 2017 08:51
[2017-04-09] MEDS ORDERED: ASPIRIN 325 MG TAB PO SCH (09:00)
[2017-04-09] MEDS ORDERED: METOPROLOL SUCCINATE 50 MG EXTENDED RELEASE TAB PO SCH (09:00)
[2017-04-09] MEDS: DRONEDARONE 400 MG TAB PO SCH (10:04)
[2017-04-09] MEDS: HEPARIN SODIUM - SQ 10,000 UNITS/ML VIAL SQ SCH (10:15)
[2017-04-09] MEDS: CLOPIDOGREL 75 MG TAB PO SCH (10:15)
--- NOTE | 2017-04-09 10:55 | MB ---
cc: KELVIN WILKINS DATE OF CONSULTATION 04/09/2017 REASON FOR CONSULTATION A 81-year-old white male who developed confusion and numbness of his hands while playing golf yesterday. He was brought to the emergency room with resolution of his symptoms. His MRI of the brain showed no acute stroke. He was diagnosed with a TIA. PAST MEDICAL HISTORY Positive for: 1. Ventricular tachycardia 2. Coronary artery disease 3. Coronary artery bypass on two occasions 4. Hypothyroidism 5. Hypertension 6. Dyslipidemia 7. Borderline diabetes mellitus 8. Appendectomy MEDICATIONS Medications include: 1. Aspirin 2. Metoprolol 3. Levothyroxine 4. Multaq 5. Pravastatin 6. Heparin subcu 7. Plavix SOCIAL HISTORY The patient does not smoke. He drinks alcohol socially. He quit smoking 40 years ago. FAMILY HISTORY Positive for heart disease. REVIEW OF SYSTEMS Otherwise negative PHYSICAL EXAMINATION VITAL SIGNS: Blood pressure 134/74, pulse 62 and regular. HEENT: Negative. NECK: 2+ carotid upstrokes, no bruits. LUNGS: Clear. HEART: Regular with no murmur, gallop or rub. ABDOMEN: Soft. No bruits. EXTREMITIES: Without edema. 2+ distal pulses. NEUROLOGIC: Exam is grossly nonfocal. EKG was reviewed and showed mild sinus bradycardia and left bundle-branch block. LABORATORY DATA Hemoglobin 14.0, potassium 4.7, creatinine 1.1, troponin less than 0.02, LDL 119, HDL 45. DIAGNOSIS 1. TIA/CVA 2. Coronary artery disease with a history of coronary bypass. 3. Ventricular tachycardia 4. Hypertension 5. Dyslipidemia 6. Borderline diabetes mellitus DISPOSITION Mr. Kruger will undergo placement of a [employer] LINQ loop monitor to evaluate for paroxysmal atrial fibrillation as a reason for his stroke/TIA. We will continue his current medical program including Plavix as recommended by neurology. We will continue aggressive modification of his cardiac risk factors. He will be scheduled for followup with Dr. Hernandez, his primary scrap picker, in his office as an outpatient. MD LORIN Arias/RHONDA /8:41 AM /10:49 AM [facility]ITALAlessandro
[2017-04-09] MEDS ORDERED: MIDAZOLAM HCL 5 MG/5 ML VIAL ONE (12:23)
[2017-04-09] MEDS ORDERED: POVIDONE IODINE 5% (ANTISEPSIS KIT) 4 APPLICATIONS EACH NARE SCH (12:30)
[2017-04-09] MEDS ORDERED: ceFAZolin 2 GM PREMIX 50 ML IV SCH (12:30)
[2017-04-09] MEDS ORDERED: CHLORHEXIDINE GLUCONATE 2 % 1 PACK (2 CLOTHS) TOPICAL SCH (12:30)
[2017-04-09] MEDS ORDERED: MUPIROCIN 2% OINT 1 APPLIC/GM SYR NASAL SCH (12:30)
[2017-04-09] MEDS ORDERED: 1/2 NS 1000 ML IV SCH (13:00)
--- NOTE | 2017-04-09 15:30 | EKG ---
Date Performed: 04/08/2017 Time Performed: 13:15:12 PTAGE: 81 years EKG: SINUS BRADYCARDIA LEFT BUNDLE BRANCH BLOCK ABNORMAL ECG Compared to prior tracing no signif icant change PREVIOUS TRACING 08/26/2011 @07.06 DOCTOR: Rory Moyer Interpretating Date/Time 04/09/2017 15:30:13
[2017-04-09 16:12] LABS: HEMOGLOBIN A1a 1.2 %; HEMOGLOBIN A1b 0.8 %; HEMOGLOBIN Ao 83.3 %; HEMOGLOBIN F 1.4 %
--- NOTE | 2017-04-09 17:53 | ECHRPT ---
Indication: CVA/TIA CONCLUSIONS BP: 124 / 65 HR: 64 Rhythm: Other MEASUREMENTS (Male / Female) Normal Values Technical Quality:Fair 2D ECHO LV Diastolic Diameter PLAX 4.9 cm 4.2 - 5.9 / 3.9 - 5.3 cm LV Systolic Diameter PLAX 3.7 cm IVS Diastolic Thickness 1.1 cm 0.6 - 1.0 / 0.6 - 0.9 cm LVPW Diastolic Thickness 1.1 cm 0.6 - 1.0 / 0.6 - 0.9 cm LV Relative Wall Thickness 0.4 LVOT Diameter 2.0 cm M-MODE Aortic Root Diameter MM 3.4 cm LA Systolic Diameter MM 5.1 cm LA Ao Ratio MM 1.5 AV Cusp Separation MM 2.0 cm DOPPLER AV Peak Velocity 99.1 cm/s AV Peak Gradient 3.9 mmHg LVOT Peak Velocity 67.6 cm/s LVOT Peak Gradient 1.8 mmHg AV Area Cont Eq pk 2.1 cm Mitral E Point Velocity 65.6 cm/s Mitral A Point Velocity 62.7 cm/s Mitral E to A Ratio 1.0 LV E' Lateral Velocity 7.0 cm/s Mitral E to LV E' Lateral Ratio 9.3 LV E' Septal Velocity 2.6 cm/s Mitral E to LV E' Septal Ratio 24.9 PV Peak Velocity 109.0 cm/s PV Peak Gradient 4.8 mmHg FINDINGS LEFT VENTRICLE The left ventricular systolic function is normal with an estimated ejection fraction in the range of 55-60%. Normal left ventricular size. Wall thickness is measured at the upper limits of normal. RIGHT VENTRICLE Normal right ventricular size and systolic function. LEFT ATRIUM The left atrial size is normal. RIGHT ATRIUM The right atrial size is normal. AORTA The aortic root and proximal ascending aorta are normal in size on limited imaging. MITRAL VALVE Mild mitral annular calcification. AORTIC VALVE Trileaflet aortic valve. No aortic valve stenosis or regurgitation. TRICUSPID VALVE Structurally normal tricuspid valve. No tricuspid valve stenosis or regurgitation. PULMONARY VALVE Trivial pulmonary valve regurgitation. VESSELS The inferior vena cava is normal in size. PERICARDIUM No pericardial effusion. Kenroy Hare MD (Electronically Signed) Final Date:09 April 2017 17:53
--- NOTE | 2017-04-11 10:55 | MR ---
cc: KELVIN WILKINS DATE: 04/08/2017 INDICATION TIA / evaluation for atrial fibrillation. PROCEDURE PERFORMED 1. Placement of Medtronic LINQ MRI compatible loop monitor. 2. Moderate sedation. ACCESS SITE: Left subclavicular area. EQUIPMENT USED : Medtronic reveal LINQ model LMQ11, MRI compatible loop monitor. Serial number [id number] MEDICATIONS Versed IV Fentanyl IV. PROCEDURE: After the patient was sedated, the chest was prepped and draped in the usual sterile manner, local anesthesia was applied. Medtronic LINQ monitor was placed in the left subclavicular area without difficulty. R-wave was 0.35 mV. DIAGNOSIS Placement of Reveal LINQ MRI compatible loop monitor. DISPOSITION Mr. Kruger will continue his current medical program. He will be monitored for atrial fibrillation. Dr. Hernandez, his primary edge stripper, will see him for followup as an outpatient. MD LORIN Arias/anthony /2:00 PM /10:50 AM LONNY
== END 2017-04-09 16:18 | disposition home or self-care (01) ==
LOC: NEPE 10:34 → NEDA 13:52 → NEPGCP 15:53
PROVIDERS: ADMIT Specialist; ATTEND Specialist
DX: G45.9 Transient cerebral ischemic attack, unspecified (principal); I10 Essential (primary) hypertension; E78.5 Hyperlipidemia, unspecified; I25.10 Atherosclerotic heart disease of native coronary artery without angina pectoris; E03.9 Hypothyroidism, unspecified; E78.00 Pure hypercholesterolemia, unspecified; I47.2 Ventricular tachycardia; Z95.1 Presence of aortocoronary bypass graft; Z79.82 Long term (current) use of aspirin; Z87.891 Personal history of nicotine dependence
CPT/HCPCS: 33282; 70450; 70544; 70551; 71010; 80061; 80307; 81001; 82435; 82550; 82565; 82947; 82948; 83036; 84132; 84295; 84484; 84520; 85025; 85384; 85610; 85730; 93005; 93306; 93880; 96360; 96361; 96372; 99291; C1764; G0378; J0690; J1644; J2250; J3010; J7030; J7040